=== PATIENT | male | born 1975 | race Caucasian/White ===

== ENCOUNTER → 2016-11-09 | Outpatient (CLI) | payer OTHER ==
--- NOTE | 2016-11-11 14:30 | CR ---
EXAM DATE: 11/09/16 PATIENT'S AGE: 41 Patient: VITOR BLACKWELLGESS Facility: [place], [place] Site . Site : 1975 Study: XRay Shoulder Right [id number]/13/2017 9:51:01 AM Ordering Physician: Pako Fields Final Report: INDICATION: Right shoulder pain. TECHNIQUE: Three views of the right shoulder. COMPARISON: None. FINDINGS: No joint space narrowing, erosive change, abnormal soft tissue calcification or other abnormality. IMPRESSION: Negative right shoulder. Dictated by Vitor Major MD @ Nov 09 2016 2:16PM (Electronic Signature) Report Signed by Proxy and Original Signed Document filed in the Medical Record. [facility]
--- NOTE | 2016-11-11 14:31 | CR ---
EXAM DATE: 11/09/16 PATIENT'S AGE: 41 Patient: VITOR BLACKWELLGESS Facility: [place], [place] Site . Site : 1975 Study: XRay Extremity Right ELBOW [id number]/13/2017 9:52:14 AM Ordering Physician: Pako Fields Final Report: INDICATION: Right elbow pain. TECHNIQUE: Three views of the right elbow. COMPARISON: None. FINDINGS: No joint effusion, fracture, joint space narrowing, erosive change, loose body or other abnormality. IMPRESSION: Negative right elbow. Dictated by Vitor Major MD @ Nov 09 2016 2:17PM (Electronic Signature) Report Signed by Proxy and Original Signed Document filed in the Medical Record. [facility]
== END ==
LOC: MW.CHFP 09:28
PROVIDERS: ATTEND Student in an Organized Health Care Education/Training Program
DX: M25.511 Pain in right shoulder (principal); M25.521 Pain in right elbow; G89.29 Other chronic pain
CPT/HCPCS: 73030-26-RT; 73030-RT; 73080-26-RT; 73080-RT